=== PATIENT | female | born 1975 | race African-American/Black ===

== ENCOUNTER 2016-10-27 08:33 | Outpatient (CLI) | payer OTHER ==
[~2016-10-27] VITALS: Ht 160 cm; Wt 64.4 kg
[~2016-10-27 08:33] MED LIST: ALIG4CAP PO; LIDOCAINE 2% INJ 100 MG/5 ML SDV (FOR ANES.) As Ordered ONE; PROPOFOL 200 MG/20 ML VIAL As Ordered ONE; WOME1TAB3 PO
[2016-10-27] MEDS ORDERED: NS 1,000 ML IV ONE (08:45)
[2016-10-27] MEDS ORDERED: ePHEDrine SULFATE 25 MG/5 ML(5MG/ML) SYRINGE As Ordered ONE (09:08)
--- NOTE | 2016-10-27 09:28 | ROOR ---
Patient Name: Renetta Hoff Procedure Date: 10/27/2016 9:03 AM Date of : 1975 Age: 41 Room: [facility] Gender: Female Note Status: Finalized Procedure: Total Colonoscopy to Cecum Indications: Lower abdominal pain, Change in bowel habits Providers: Haile Perez MD Referring MD: AMBERLY GAMING MD Requesting Provider: Medicines: Monitored Anesthesia Care Complications: No immediate complications. Procedure: Pre-Anesthesia Assessment: - The heart rate, respiratory rate, oxygen saturations, blood pressure, adequacy of pulmonary ventilation, and response to care were monitored throughout the procedure. The Colonoscope was introduced through the anus and advanced to the cecum, identified by appendiceal orifice and ileocecal valve. The colonoscopy was performed without difficulty. The patient tolerated the procedure well. The quality of the bowel preparation was excellent. Findings: The perianal and digital rectal examinations were normal. Non-bleeding internal hemorrhoids were found during retroflexion. The hemorrhoids were small and Grade I (internal hemorrhoids that do not prolapse). No other significant abnormalities were identified in a careful examination of the remainder of the colon. The exam was otherwise without abnormality on direct and retroflexion views. Impression: - Non-bleeding internal hemorrhoids. - The examination was otherwise normal on direct and retroflexion views. - No specimens collected. - The exam was otherwise normal to the cecum. Recommendation: - Patient has a contact number available for emergencies. The signs and symptoms of potential delayed complications were discussed with the patient. Return to normal activities tomorrow. Written discharge instructions were provided to the patient. - High fiber diet. - Discharge patient to home. - Continue present medications. - Repeat colonoscopy at age 51 for screening purposes. - Return to referring physician. - The findings and recommendations were discussed with the patient's family. Haile Perez MD Haile Perez MD 10/27/2016 9:28:27 AM This report has been signed electronically. Number of Addenda: 0 Note Initiated On: 10/27/2016 9:03 AM Estimated Blood Loss: Estimated blood loss: none.
[2016-10-27 09:50] VITALS: BP 125/67
== END 2016-10-27 10:11 | disposition home or self-care (01) ==
LOC: M OPP 08:33
PROVIDERS: ATTEND Internal Medicine Gastroenterology
DX: R10.30 Lower abdominal pain, unspecified (principal); R19.4 Change in bowel habit; K64.0 First degree hemorrhoids; R12 Heartburn; M54.5 Low back pain; F41.9 Anxiety disorder, unspecified; G43.909 Migraine, unspecified, not intractable, without status migrainosus; J45.909 Unspecified asthma, uncomplicated; K25.9 Gastric ulcer, unspecified as acute or chronic, without hemorrhage or perforation; Z79.899 Other long term (current) drug therapy; Z80.42 Family history of malignant neoplasm of prostate